=== PATIENT | male | born 1955 | race Caucasian/White ===

== ENCOUNTER 2017-11-22 08:12 | Day surgery (SDC) | payer OTHER ==
[~2017-11-22 08:12] MED LIST: EPHEDrine SULFATE 50 MG/5 ML SYG
[2017-11-22] MEDS: NEPAFENAC 0.1% 3 ML OPH OPER (08:53)
[2017-11-22] MEDS: MOXIFLOXACIN 0.5% 3 ML OPH OPER (08:53)
[2017-11-22] MEDS: PHENYLephrine 10% 5 ML OPH OPER (08:53)
[2017-11-22] MEDS: CYCLOPENTOLATE 2% 2 ML OPH OPER (08:53)
[2017-11-22] MEDS ORDERED: EPINEPHrine 1 MG INJ (09:53)
[2017-11-22] MEDS ORDERED: SODIUM BICARBONATE (IV ADD) 50 ML (09:53)
[2017-11-22] MEDS ORDERED: LIDOCAINE 1% (MPF) 10 ML INJ (09:53)
[2017-11-22] MEDS ORDERED: LIDOCAINE 2% (SDV) 5 ML INJ (09:55)
[2017-11-22] MEDS ORDERED: TIMOLOL 0.5% 5 ML OPH (09:55)
[2017-11-22] MEDS ORDERED: BUPIVACAINE 0.75% (MPF) 10 ML INJ (09:55)
[2017-11-22] MEDS ORDERED: FENTAnyl 50 MCG/ML VIAL (10:17)
[2017-11-22] MEDS ORDERED: MIDAZOLAM 1 MG/ML 2 ML INJ (10:17)
[2017-11-22] MEDS ORDERED: PROPOFOL 20 ML (10:17)
[2017-11-22] MEDS ORDERED: CARBACHOL 0.01% 1.5 ML OPH INJ (10:49)
[2017-11-22] MEDS: CARBACHOL 0.01% 1.5 ML OPH INJ INJ (10:50)
[2017-11-22] MEDS ORDERED: DEXAMETHASONE 4 MG/ML 1 ML INJ (10:54)
[2017-11-22] MEDS ORDERED: SUGAMMADEX SODIUM 200 MG/2 ML VIAL IV (10:54)
[2017-11-22] MEDS ORDERED: METOCLOPRAMIDE 10 MG INJ (10:54)
[2017-11-22] MEDS ORDERED: ONDANSETRON 4 MG INJ (10:54)
== END 2017-11-22 13:00 | disposition home or self-care (01) ==
LOC: SDS 08:12
DX: H25.12 Age-related nuclear cataract, left eye (principal); E11.9 Type 2 diabetes mellitus without complications; I10 Essential (primary) hypertension
CPT/HCPCS: 66984; 82962